=== PATIENT | female | born 1940 | race Caucasian/White ===

== ENCOUNTER 2018-01-26 02:48 | Emergency (ER) | payer MEDICARE, BC ==
[~2018-01-26] VITALS: Ht 170.2 cm; Wt 86.2 kg
[2018-01-26] MEDS ORDERED: ONDANSETRON PF 4 MG/2 ML VIAL. IV ONE (03:30)
[2018-01-26 04:23] LABS: BASO # 0.1 x10^3/uL (0.0-0.2); BASO % 1 % (0-3); EOS # 0.1 x10^3/uL (0.0-0.7); EOS % 2 % (0-3); HEMATOCRIT 35.1 % (36.0-47.0); LYMPH # 2.4 x10^3/uL (1.0-4.8); LYMPH % 39 % (24-48); MEAN CORPUSCULAR HEMOGLOBIN 32 pg (25-35); MEAN CORPUSCULAR HGB CONC 34 g/dL (31-37); MEAN CORPUSCULAR VOLUME 94 fL (79-100); MONO # 0.6 x10^3/uL (0.0-1.1); MONO % 10 % (0-9); NEUT # 2.9 x10^3uL (1.8-7.7); NEUT % 48 % (31-73); PLATELET COUNT 245 x10^3/uL (140-400); RED BLOOD COUNT 3.75 x10^6/uL (3.50-5.40); RED CELL DISTRIBUTION WIDTH 12.4 % (11.5-14.5); WHITE BLOOD COUNT 6.1 x10^3/uL (4.0-11.0)
[2018-01-26 04:27] LABS: ALBUMIN 3.6 g/dL (3.4-5.0); CALCIUM 8.2 mg/dL (8.5-10.1); CREATININE 1.6 mg/dL (0.6-1.0); GFR 31.3; POTASSIUM 4.1 mmol/L (3.5-5.1); TOTAL BILIRUBIN 0.3 mg/dL (0.2-1.0); TOTAL PROTEIN 7.2 g/dL (6.4-8.2)
[2018-01-26] MEDS ORDERED: IOHEXOL 300 MG/ML 75 ML VIAL. IV ONE (04:30)
[2018-01-26] MEDS ORDERED: CONTRAST GIVEN MC PRN (04:30)
[2018-01-26 04:43] LABS: BILIRUBIN,URINE NEG (NEG); CLARITY,URINE CLEAR; COLOR,URINE YELLOW; GLUCOSE,URINE NEG (NEG); NITRITE,URINE NEG (NEG); UROBILINOGEN,URINE 0.2 mg/dL (0.2 mg/dL)
[2018-01-26 04:44] LABS: BACTERIA,URINE 0 /HPF (0-FEW); RBC,URINE OCC /HPF (0-2); SQUAMOUS EPITHELIAL CELL,UR OCC /LPF
[2018-01-26] MEDS ORDERED: IV NORMAL SALINE 500ML 500 ML IV ONE (04:45)
--- NOTE | 2018-01-26 04:50 | EKG ---
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
[2018-01-26 05:16] VITALS: BP 155/61
--- NOTE | 2018-01-26 05:31 | ED.ADGEN ---
Past History Past Medical History: High Cholesterol, Hypertension, Hypothyroid Alcohol Use: None Drug Use: None Adult General Chief Complaint Chief Complaint Mid back pain HPI HPI Patient is a 77-year-old female presents with diffuse mid back pain for the past several days. Patient denies fall, repetitive strain injury. Pain is described as moderate to severe. It is worse with palpation but is constant otherwise. Patient's taken Tylenol with no relief. Denies chest pain, shortness of breath, palpitations, abdominal pain. Pain does not radiate. Denies lower extremity weakness or loss of sensation. No urinary frequency urgency hematuria. No history of kidney stones. Of note, the patient has been staying with her at [facility] and at the care home unit at [facility] the past 3 weeks and has been sitting and sleeping at times and uncomfortable chairs for prolonged periods of time. Patient arrives by by private vehicle[] Review of Systems Review of Systems Review symptoms as prescribed. All other review symptoms are negative All other systems were reviewed and found to be within normal limits, except as documented in this note. Current Medications Current Medications Current Medications Medications (Trade) Dose Ordered Sig/Luis Eduardo Start Time Stop Time Status Last Admin Dose Admin Fentanyl Citrate (Fentanyl 2ml Vial) 50 mcg 1X ONCE 01/26/18 04:45 01/26/18 04:54 DC 01/26/18 04:43 50 MCG Info (Do NOT chart on this entry -- for MONITORING) 1 each PRN DAILY PRN 01/26/18 04:30 01/28/18 04:29 Iohexol (Omnipaque 300 Mg/ml) 90 ml 1X ONCE 01/26/18 04:30 01/26/18 04:31 DC 01/26/18 04:33 75 ML Ondansetron HCl (Zofran) 4 mg 1X ONCE 01/26/18 03:30 01/26/18 03:42 DC 01/26/18 03:49 4 MG Sodium Chloride 500 ml @ 0 mls/hr 1X ONCE 01/26/18 04:45 01/26/18 04:54 DC 01/26/18 04:43 500 MLS/HR Allergies Allergies Allergies Coded Allergies Type Severity Reaction Last Updated Verified No Known Drug Allergies 01/26/18 No Physical Exam Physical Exam Constitutional: Well developed, well nourished, no acute distress, non-toxic appearance. [] HENT: Normocephalic, atraumatic, bilateral external ears normal, oropharynx moist, no oral exudates, nose normal. [] Eyes: PERRLA, EOMI, conjunctiva normal, no discharge. [] Neck: Normal range of motion, no tenderness, supple, no stridor. [] Cardiovascular:Heart rate regular rhythm, no murmur [] Lungs & Thorax: Bilateral breath sounds clear to auscultation [] Abdomen: Bowel sounds normal, soft, no tenderness. Pulsatile, obesity compromising exam[] Skin: Warm, dry, no erythema. [] Back: Diffuse thoracic and lumbar back pain, tenderness. [] Extremities: No tenderness, no edema. [] Neurologic: Alert and oriented X 3, normal motor function, normal sensory function, no focal deficits noted. [] Psychologic: Affect normal, judgement normal, mood normal. [] Current Patient Data Vital Signs Vital Signs Date Time Temp Pulse Resp B/P (MAP) Pulse Ox O2 Delivery O2 Flow Rate FiO2 01/26/18 05:16 63 17 155/61 (92) 95 Room Air 01/26/18 03:05 96.9 Lab Results Laboratory Tests Test 01/26/18 03:33 01/26/18 03:54 White Blood Count 6.1 x10^3/uL (4.0-11.0) Red Blood Count 3.75 x10^6/uL (3.50-5.40) Hemoglobin 12.0 g/dL (12.0-15.5) Hematocrit 35.1 % (36.0-47.0) L Mean Corpuscular Volume 94 fL (79-100) Mean Corpuscular Hemoglobin 32 pg (25-35) Mean Corpuscular Hemoglobin Concent 34 g/dL (31-37) Red Cell Distribution Width 12.4 % (11.5-14.5) Platelet Count 245 x10^3/uL (140-400) Neutrophils (%) (Auto) 48 % (31-73) Lymphocytes (%) (Auto) 39 % (24-48) Monocytes (%) (Auto) 10 % (0-9) H Eosinophils (%) (Auto) 2 % (0-3) Basophils (%) (Auto) 1 % (0-3) Neutrophils # (Auto) 2.9 x10^3uL (1.8-7.7) Lymphocytes # (Auto) 2.4 x10^3/uL (1.0-4.8) Monocytes # (Auto) 0.6 x10^3/uL (0.0-1.1) Eosinophils # (Auto) 0.1 x10^3/uL (0.0-0.7) Basophils # (Auto) 0.1 x10^3/uL (0.0-0.2) Sodium Level 141 mmol/L (136-145) Potassium Level 4.1 mmol/L (3.5-5.1) Chloride Level 105 mmol/L (98-107) Carbon Dioxide Level 28 mmol/L (21-32) Anion Gap 8 (6-14) Blood Urea Nitrogen 27 mg/dL (7-20) H Creatinine 1.6 mg/dL (0.6-1.0) H Estimated GFR (Cockcroft-Gault) 31.3 BUN/Creatinine Ratio 17 (6-20) Glucose Level 117 mg/dL (70-99) H Calcium Level 8.2 mg/dL (8.5-10.1) L Total Bilirubin 0.3 mg/dL (0.2-1.0) Aspartate Amino Transferase (AST) 17 U/L (15-37) Alanine Aminotransferase (ALT) 28 U/L (14-59) Alkaline Phosphatase 73 U/L (46-116) Troponin I Quantitative < 0.017 ng/mL (0-0.055) Total Protein 7.2 g/dL (6.4-8.2) Albumin 3.6 g/dL (3.4-5.0) Albumin/Globulin Ratio 1.0 (1.0-1.7) Urine Collection Type Unknown Urine Color Yellow Urine Clarity Clear Urine pH 5.5 Urine Specific Cowan <=1.005 Urine Protein Neg (NEG-TRACE) Urine Glucose (UA) Neg mg/dL (NEG) Urine Ketones (Stick) Neg mg/dL (NEG) Urine Blood Neg (NEG) Urine Nitrite Neg (NEG) Urine Bilirubin Neg (NEG) Urine Urobilinogen Dipstick 0.2 mg/dL (0.2 mg/dL) Urine Leukocyte Esterase Trace (NEG) Urine RBC Occ /HPF (0-2) Urine WBC 1-4 /HPF (0-4) Urine Squamous Epithelial Cells Occ /LPF Urine Transitional Epithelial Cells Occ /LPF Urine Bacteria 0 /HPF (0-FEW) EKG EKG [EKG: Sinus bradycardia, rate 56, T-wave abnormalities in anterior septal leads. ] Radiology/Procedures Radiology/Procedures [CT angiogram chest/abdomen/pelvis: No evidence of dissection or aneurysm, patchy lucency and sclerosis within vertebral bodies with MRI recommended for further evaluation. Multiple other findings present radiology report] Course & Med Decision Making Course & Med Decision Making Pertinent Labs and Imaging studies reviewed. (See chart for details) [Reproducible back pain though neurologic deficits. Patient denies chest pain, shortness of breath. Symptoms significantly improved with treatment. Patient is resting comfortably. Initial labs and EKG reviewed. Patient does have T-wave inversions noted in anterior septal leads. Troponin is negative. Patient denies chest pain and shortness of breath. I suspect EKG related to current symptoms given negative troponin and prolonged nature of the patient's pain. Will treat supportively with recommendations of the patient follow-up with her PCP for review of EKG and consider of outpatient cardiac testing and MRI of back. Discussed with the importance of returning to the ED should patient develop chest pain shortness breath or other cardiac equivalent. Patient verbalizes understanding agreement with these instructions. Final Impression Final Impression [#1 thoracic back pain #2 abnormal EKG] Gloria Disclaimer Asiaon Disclaimer This electronic medical record was generated, in whole or in part, using a voice recognition dictation system. BRANDI SOLORIO DO Jan 26, 2018 05:31
[2018-01-26] MEDS ORDERED: HYDR-963 PO (05:34)
[2018-01-26] MEDS ORDERED: CYCL-331 PO (05:34)
--- NOTE | 2018-01-26 05:46 | RAD ---
INDICATION: Omni 300 75cc: Concern for dissection, Back pain, short of air x 3 days. Hx: Cholecystectomy COMPARISON: None. TECHNIQUE: Axial CT images obtained through the chest, abdomen and pelvis with intravenous contrast with three-dimensional images processed per angiogram protocol. One or more of the following individualized dose reduction techniques were utilized for this examination: 1. Automated exposure control; 2. Adjustment of the mA and/or kV according to patient size; 3. Use of iterative reconstruction technique. FINDINGS: Chest: No evidence of pneumothorax. No focal airspace consolidation to suggest pneumonia. There are some enlarged lymph nodes including at the mediastinum on the left adjacent to the main pulmonary artery measuring approximately 10 x 16 mm. Portions of a ascending thoracic aorta are obscured secondary to motion through the region. Retroesophageal right subclavian artery. Calcific atherosclerosis of the thoracic aorta without aneurysm or dissection flap in visualized portions. Abdomen and pelvis: Fat-containing inguinal hernias. Abdominal aorta is not aneurysmal. Calcific atherosclerosis is identified. No definite dissection flap of the abdominal aorta. No intrahepatic bile duct dilation. Postcholecystectomy changes. No peripancreatic fluid collection. Duodenal diverticulum. Spleen unremarkable. No left-sided hydronephrosis. Urinary bladder is largely decompressed. No right-sided hydronephrosis. Colonic diverticulosis. Subcutaneous nodular density structure pelvis anteriorly measuring 21 x 15 mm. No dilated loops of bowel to suggest obstruction. Nodular structure of the right breast measuring approximately 11 mm which appears partially calcified. Suspected Schmorl's node formation at L4 and L3. Multilevel degenerative changes of the spine with osteophyte formation at the vertebral body endplates as well as disc protrusions and facet hypertrophy contributing to multilevel central canal and neural foraminal stenosis. Patchy osseous demineralization. There are some sclerotic foci within the thoracic and lumbar spine. IMPRESSION: 1. The ascending thoracic aorta is partially obscured by motion but no definite aneurysm or dissection flap is seen within the visualized portions of the aorta. There is calcific atherosclerosis. 2. Multilevel degenerative changes throughout the spine with suspected Schmorl's node formation at multiple levels. Multilevel central canal and neural foraminal stenosis. 3. There is some regions of patchy lucency and sclerosis within the vertebral bodies. Could be secondary to areas of bone islands and osteopenia but marrow infiltrative lesions are not excluded on this examination and would correlate with symptoms. If the patient is symptomatic it may be helpful to obtain a follow-up MRI to further evaluate and ensure that there is no marrow infiltrative lesions. 4. Soft tissue nodule anterior aspect of the pelvis subcutaneous fat of unknown etiology. Could be secondary to a region of confluent fibrosis with a soft tissue mass also within the differential as well as a small high density fluid collection. 5. Liver is low-attenuation. Nonspecific but can be seen with fatty infiltration. 6. Nodular focus within the right breast which appears partially calcified. If the patient has not had a recent mammogram then mammogram could further evaluate. 7. Enlarged lymph nodes in mediastinum. Could be reactive in nature but a follow-up could be obtained in a few months to ensure no growth to exclude neoplastic causes Electronically signed by: Nabor Candelario MD (01/26/2018 5:42 AM) [id number]
== END 2018-01-26 05:58 | disposition home or self-care (01) ==
LOC: ER 02:48
DX: M54.6 Pain in thoracic spine (principal); M54.5 Low back pain; R94.31 Abnormal electrocardiogram [ECG] [EKG]; E78.00 Pure hypercholesterolemia, unspecified; I10 Essential (primary) hypertension; E03.9 Hypothyroidism, unspecified
CPT/HCPCS: 36415; 71275; 74174; 80053; 81001; 84484; 85025; 87086; 93005; 96374; 96375; 96376; 99285; J2405; J3010; J7040; Q9967

== ENCOUNTER → 2018-03-07 | Outpatient (CLI) | payer MEDICARE, BC ==
[~2018-03-07] MED LIST: CYCL-331 PO; HYDR-3136 PO; IOHEXOL 300 MG/ML 75 ML VIAL. IV ONE
--- NOTE | 2018-03-07 11:40 | RAD ---
Examination: CT chest with IV contrast HISTORY: History of family history of lung cancer, colon cancer, secondhand smoking, history of dry cough COMPARISON: 01/26/2018 TECHNIQUE: Axial CT images of chest were performed with IV contrast. Coronal and sagittal reformats are performed Exposure: One or more of the following individualized dose reduction techniques were utilized for this examination: 1. Automated exposure control 2. Adjustment of the mA and/or kV according to patient size 3. Use of iterative reconstruction technique FINDINGS: The visualized thyroid gland grossly appears unremarkable. The central airways are patent. Right subclavian artery identified coursing posterior to the esophagus. Minimal atelectasis bibasilar lungs. The heart size grossly appears unremarkable. The visualized liver, spleen, adrenals grossly appears unremarkable. Moderate degenerative changes thoracic spine. IMPRESSION: 1. Minimal bibasilar lung atelectasis. 2. Aberrant right subclavian artery coursing posterior to the esophagus, developmental. Electronically signed by: John Shabazz MD (03/07/2018 11:36 AM) [id number]
== END | disposition home or self-care (01) ==
LOC: CT 07:59
PROVIDERS: ATTEND Family Medicine
DX: J98.11 Atelectasis (principal); Q27.8 Other specified congenital malformations of peripheral vascular system; Z80.1 Family history of malignant neoplasm of trachea, bronchus and lung
CPT/HCPCS: 71260; Q9967

== ENCOUNTER → 2018-04-15 | Outpatient (CLI) | payer MEDICARE, BC ==
[~2018-04-15] MED LIST changes: -IOHEXOL 300 MG/ML 75 ML VIAL. IV ONE
--- NOTE | 2018-04-16 09:57 | RAD ---
DATE: 04/15/2018 EXAM: MAMMO AUTUMN SCREENING BILATERAL HISTORY: Routine screening COMPARISON: 02/24/2014 This study was interpreted with the benefit of Computerized Aided Detection (CAD). Breast Density: SCATTERED The breast parenchyma shows scattered fibroglandular densities. Breast parenchyma level B. FINDINGS: 2-D and 3-D tomosynthesis imaging was performed in CC and MLO projections. There is a small unchanged nodule located just lateral to the midline of the right breast which contains coarse calcifications. The appearance is compatible with a fibroadenoma. There are several tiny smooth benign-appearing nodules in both breasts. No new or enlarging breast densities are seen. Scattered benign type calcifications are present. No suspicious microcalcifications have developed. IMPRESSION: Stable mammograms without evidence of malignancy. BI-RADS CATEGORY: 2 BENIGN FINDING(S) RECOMMENDED FOLLOW-UP: 12M 12 MONTH FOLLOW-UP PQRS compliance statement: Patient information was entered into a reminder system with a target due date for the next mammogram. Mammography is a sensitive method for finding small breast cancers, but it does not detect them all and is not a substitute for careful clinical examination. A negative mammogram does not negate a clinically suspicious finding and should not result in delay in biopsying a clinically suspicious abnormality. "Our facility is accredited by the [employer] Mammography Program."
== END | disposition home or self-care (01) ==
LOC: MAMMO 10:54
PROVIDERS: ATTEND Family Medicine
DX: Z12.31 Encounter for screening mammogram for malignant neoplasm of breast (principal)
CPT/HCPCS: 77063; 77067

== ENCOUNTER 2018-09-27 19:04 | Emergency (ER) | payer BC, MEDICARE ==
[~2018-09-27] VITALS: Ht 170.2 cm; Wt 87.0 kg
--- NOTE | 2018-09-27 19:12 | ED.ADGEN ---
Past History Past Medical History: Arthritis, Diverticulitis, High Cholesterol, Hypertension, Hypothyroid Alcohol Use: None Drug Use: None Adult General Chief Complaint Chief Complaint ".. I am having some back pain...".." Here on my Rt. flank... " [facility] HPI Patient is a 78 year old female who presents with above hx and complaints Rt. flank and mid back pain. History of trauma. No history of kidney stones. No history of fever or chills. No history of cough. No history of travel. No history of specific ill contacts. Has had a previous episode that resolved over 24 hours. Pt. follow s with Dr. Oshea Review of Systems Review of Systems Constitutional: Denies fever or chills [] Eyes: Denies change in visual acuity, redness, or eye pain [] HENT: Denies nasal congestion or sore throat [] Respiratory: Denies cough or shortness of breath [] Cardiovascular: No additional information not addressed in HPI [] GI: Complaints of right flank abdominal pain, nausea. Denies, vomiting, bloody stools or diarrhea [] : Denies dysuria or hematuria [] Musculoskeletal:, Complaints of right flank back pain or joint pain [] Integument: Denies rash or skin lesions [] Neurologic: Denies headache, focal weakness or sensory changes [] Endocrine: Denies polyuria or polydipsia [] All other systems were reviewed and found to be within normal limits, except as documented in this note. Family History Family History Noncontributory to presentation Current Medications Current Medications Current Medications Medications (Trade) Dose Ordered Sig/[facility] Start Time Stop Time Status Last Admin Dose Admin Ketorolac Tromethamine (Toradol 15mg Vial) 15 mg 1X ONCE 09/27/18 19:30 09/27/18 19:31 DC 09/27/18 20:16 15 MG Morphine Sulfate (Morphine 10mg Syringe) 10 mg 1X ONCE 09/27/18 21:30 09/27/18 21:31 DC 09/27/18 21:23 10 MG Allergies Allergies Allergies Coded Allergies Type Severity Reaction Last Updated Verified No Known Drug Allergies 01/26/18 No Physical Exam Physical Exam Constitutional: Moderately acute distress, non-toxic appearance. [] HENT: Normocephalic, atraumatic, bilateral external ears normal, oropharynx moist, no oral exudates, nose normal. [] Eyes: PERRLA, EOMI, conjunctiva normal, no discharge. [] Neck: Normal range of motion, no tenderness, supple, no stridor. [] Cardiovascular:Heart rate regular rhythm, no murmur [] Lungs & Thorax: Bilateral breath sounds equal apex on auscultation [] Abdomen: Bowel sounds decreased, soft, right flank tenderness, no masses, no pulsatile masses. [] Skin: Warm, dry, no erythema, no rash. [] Back: Right flank CVA tenderness. [] Extremities: No tenderness, no cyanosis, no clubbing, ROM intact, no edema. 3 changes. No cording appreciated. Neurologic: Alert and oriented X 3, normal motor function, normal sensory function, no focal deficits noted. [] Psychologic: Affect anxious, judgement normal, mood normal. [] Current Patient Data Vital Signs Vital Signs Date Time Temp Pulse Resp B/P (MAP) Pulse Ox O2 Delivery O2 Flow Rate FiO2 09/27/18 21:28 54 22 172/59 (96) 100 Room Air 09/27/18 19:10 97.5 Lab Results Laboratory Tests Test 09/27/18 19:10 09/27/18 19:35 Urine Collection Type Unknown Urine Color Yellow Urine Clarity Clear Urine pH 5.5 Urine Specific Counce 1.015 Urine Protein Neg (NEG-TRACE) Urine Glucose (UA) Neg mg/dL (NEG) Urine Ketones (Stick) Neg mg/dL (NEG) Urine Blood Neg (NEG) Urine Nitrite Neg (NEG) Urine Bilirubin Neg (NEG) Urine Urobilinogen Dipstick 1 mg/dL (0.2 mg/dL) Urine Leukocyte Esterase Neg (NEG) Urine RBC 0 /HPF (0-2) Urine WBC 1-4 /HPF (0-4) Urine Squamous Epithelial Cells Occ /LPF Urine Bacteria 0 /HPF (0-FEW) White Blood Count 7.2 x10^3/uL (4.0-11.0) Red Blood Count 3.78 x10^6/uL (3.50-5.40) Hemoglobin 11.9 g/dL (12.0-15.5) L Hematocrit 36.0 % (36.0-47.0) Mean Corpuscular Volume 95 fL (79-100) Mean Corpuscular Hemoglobin 32 pg (25-35) Mean Corpuscular Hemoglobin Concent 33 g/dL (31-37) Red Cell Distribution Width 12.8 % (11.5-14.5) Platelet Count 238 x10^3/uL (140-400) Neutrophils (%) (Auto) 54 % (31-73) Lymphocytes (%) (Auto) 35 % (24-48) Monocytes (%) (Auto) 8 % (0-9) Eosinophils (%) (Auto) 2 % (0-3) Basophils (%) (Auto) 1 % (0-3) Neutrophils # (Auto) 3.9 x10^3uL (1.8-7.7) Lymphocytes # (Auto) 2.5 x10^3/uL (1.0-4.8) Monocytes # (Auto) 0.6 x10^3/uL (0.0-1.1) Eosinophils # (Auto) 0.1 x10^3/uL (0.0-0.7) Basophils # (Auto) 0.1 x10^3/uL (0.0-0.2) Prothrombin Time 9.8 SEC (9.4-11.4) Prothrombin Time INR 1.0 (0.9-1.1) PTT 25 SEC (23-33) Sodium Level 142 mmol/L (136-145) Potassium Level 4.0 mmol/L (3.5-5.1) Chloride Level 105 mmol/L (98-107) Carbon Dioxide Level 25 mmol/L (21-32) Anion Gap 12 (6-14) Blood Urea Nitrogen 23 mg/dL (7-20) H Creatinine 1.4 mg/dL (0.6-1.0) H Estimated GFR (Cockcroft-Gault) 36.4 Glucose Level 91 mg/dL (70-99) Calcium Level 8.8 mg/dL (8.5-10.1) Magnesium Level 1.9 mg/dL (1.8-2.4) Total Bilirubin 0.3 mg/dL (0.2-1.0) Direct Bilirubin 0.1 mg/dL (0.0-0.2) Aspartate Amino Transferase (AST) 17 U/L (15-37) Alanine Aminotransferase (ALT) 33 U/L (14-59) Alkaline Phosphatase 64 U/L (46-116) Creatine Kinase 46 U/L (26-192) Troponin I Quantitative < 0.017 ng/mL (0-0.055) Total Protein 7.3 g/dL (6.4-8.2) Albumin 3.6 g/dL (3.4-5.0) EKG EKG [] Radiology/Procedures Radiology/Procedures [ My interpretation of acute abd. film show no large pulmonary infiltrate. No free air under a gram. Does have stool in the colon. Obstructive bowel gas pattern. Does have findings of degenerative joint changes both of extremities and spine. ][address] [address] IMAGING REPORT Signed PATIENT: SHAQUILLE CAROLINA ACCOUNT: [id number] : 1940 LOCATION: ER AGE: 78 SEX: F EXAM STATUS: REG ER ORD. PHYSICIAN: ANTONIO LEVINE MD REASON: Mid back, lower back and Rt. flank pain. Hx cholecystectomy PROCEDURE: CT ABDOMEN PELVIS WO CONTRAST CT study abdomen and pelvis without contrast Clinical indications: Mid back pain lower back pain and right flank pain. History cholecystectomy. TECHNIQUE: Noncontrast helical CT scanning of abdomen and pelvis was performed. Without contrast, the sensitivity to detect organ pathology and GI tract pathology is decreased. PQRS compliance Statement One or more of the following individualized dose reduction techniques were utilized for this study: 1. Automated exposure control 2. Adjustment of the mA and/or kV according to patient size 3. Use of iterative reconstruction technique COMPARISON: None available. FINDINGS: The liver and spleen and pancreas are unremarkable on this noncontrast study. The gallbladder is surgically absent. No extrahepatic biliary ductal dilatation is seen. No adrenal mass is evident. No renal stone or ureteral stone or hydronephrosis or hydroureter is evident. No renal mass is seen on either side on this noncontrast study. Urinary bladder wall is smooth. No uterine mass is evident. No dominant ovarian cyst or mass is seen. No focal aneurysmal dilatation of the abdominal aorta is seen. No enlarged abdominal or pelvic lymphadenopathy is evident. Sigmoid diverticulosis is seen without diverticulitis. The appendix is normal. The terminal ileum is unremarkable. No obstructive bowel pattern is evident. No free intraperitoneal air or free fluid or mesenteric edema is evident. No lung base consolidation is evident. There is edema of the anterior abdominal wall on the right side. A few bubbles of air are seen here as well. No abscess or fluid collection is seen here. No lytic process is seen. Grade 1 anterolisthesis of L4-5 without spondylolysis. No compression fracture is evident. There is a moderate spinal canal stenosis at this level. IMPRESSION: There is a focus of soft tissue edema involving the anterior abdominal wall on the right side. This area measures 4.3 cm in greatest dimension. There are a few bubbles of air within it. This could be due to subcutaneous injection if there is a history of such. If not, this may be due to focal infection. No abscess is seen here. Sigmoid diverticulosis without diverticulitis. No other acute abnormality of the abdomen or pelvis is evident. Moderate spinal canal stenosis at L4-5 secondary to grade 1 anterolisthesis. Electronically signed by: Yolie Mckenzie MD (09/27/2018 10:20 PM) [facility] DICTATED AND SIGNED BY: YOLIE MCKENZIE MD DATE: 09/27/182219 CC: ASH OSHEA MD; ANTONIO LEVINE MD ~ Course & Med Decision Making Course & Med Decision Making Pertinent Labs and Imaging studies reviewed. (See chart for details) Pt. currently declines admission. Recommend pt. follow up Dr. Oshea. Return at any time. Pt. to push fluids. Tylenol and Ibuprofen for pain. MOM to avoid constipation. [] Final Impression Final Impression 1. Abdomen Pain Rt. Flank- Renal colic?? 2. DJD Lumbar spine L4-5 Stenosis 3. Elevated BUN 23 and Creat. 1.4 4. Mild Dehydration Dragon Disclaimer Draglucio Disclaimer This electronic medical record was generated, in whole or in part, using a voice recognition dictation system. Discharge Summary Visit Information Final Diagnosis Problems Medical Problems: (1) Pain in the abdomen Status: Acute (2) Spinal stenosis at L4-L5 level Status: Acute Brief Hospital Course Allergies Allergies Coded Allergies Type Severity Reaction Last Updated Verified No Known Drug Allergies 01/26/18 No Vital Signs Vital Signs Date Time Temp Pulse Resp B/P (MAP) Pulse Ox O2 Delivery O2 Flow Rate FiO2 09/27/18 21:28 54 22 172/59 (96) 100 Room Air 09/27/18 19:10 97.5 Lab Results Laboratory Tests Test 6/22/19 19:10 09/27/18 19:35 Urine Collection Type Unknown Urine Color Yellow Urine Clarity Clear Urine pH 5.5 Urine Specific Counce 1.015 Urine Protein Neg (NEG-TRACE) Urine Glucose (UA) Neg mg/dL (NEG) Urine Ketones (Stick) Neg mg/dL (NEG) Urine Blood Neg (NEG) Urine Nitrite Neg (NEG) Urine Bilirubin Neg (NEG) Urine Urobilinogen Dipstick 1 mg/dL (0.2 mg/dL) Urine Leukocyte Esterase Neg (NEG) Urine RBC 0 /HPF (0-2) Urine WBC 1-4 /HPF (0-4) Urine Squamous Epithelial Cells Occ /LPF Urine Bacteria 0 /HPF (0-FEW) White Blood Count 7.2 x10^3/uL (4.0-11.0) Red Blood Count 3.78 x10^6/uL (3.50-5.40) Hemoglobin 11.9 g/dL (12.0-15.5) Hematocrit 36.0 % (36.0-47.0) Mean Corpuscular Volume 95 fL (79-100) Mean Corpuscular Hemoglobin 32 pg (25-35) Mean Corpuscular Hemoglobin Concent 33 g/dL (31-37) Red Cell Distribution Width 12.8 % (11.5-14.5) Platelet Count 238 x10^3/uL (140-400) Neutrophils (%) (Auto) 54 % (31-73) Lymphocytes (%) (Auto) 35 % (24-48) Monocytes (%) (Auto) 8 % (0-9) Eosinophils (%) (Auto) 2 % (0-3) Basophils (%) (Auto) 1 % (0-3) Neutrophils # (Auto) 3.9 x10^3uL (1.8-7.7) Lymphocytes # (Auto) 2.5 x10^3/uL (1.0-4.8) Monocytes # (Auto) 0.6 x10^3/uL (0.0-1.1) Eosinophils # (Auto) 0.1 x10^3/uL (0.0-0.7) Basophils # (Auto) 0.1 x10^3/uL (0.0-0.2) Prothrombin Time 9.8 SEC (9.4-11.4) Prothromb Time International Ratio 1.0 (0.9-1.1) Activated Partial Thromboplast Time 25 SEC (23-33) Sodium Level 142 mmol/L (136-145) Potassium Level 4.0 mmol/L (3.5-5.1) Chloride Level 105 mmol/L (98-107) Carbon Dioxide Level 25 mmol/L (21-32) Anion Gap 12 (6-14) Blood Urea Nitrogen 23 mg/dL (7-20) Creatinine 1.4 mg/dL (0.6-1.0) Estimated GFR (Cockcroft-Gault) 36.4 Glucose Level 91 mg/dL (70-99) Calcium Level 8.8 mg/dL (8.5-10.1) Magnesium Level 1.9 mg/dL (1.8-2.4) Total Bilirubin 0.3 mg/dL (0.2-1.0) Direct Bilirubin 0.1 mg/dL (0.0-0.2) Aspartate Amino Transf (AST/SGOT) 17 U/L (15-37) Alanine Aminotransferase (ALT/SGPT) 33 U/L (14-59) Alkaline Phosphatase 64 U/L (46-116) Creatine Kinase 46 U/L (26-192) Troponin I Quantitative < 0.017 ng/mL (0-0.055) Total Protein 7.3 g/dL (6.4-8.2) Albumin 3.6 g/dL (3.4-5.0) Brief Hospital Course Ms. Carolina is a 78 old female who presented with Rt. flank abd. pain. No surgical pathology found on CT. Pt. symptoms had cleared, and declined admission. Suspect diverticulitis vs renal colic. Pt. to follow with primary Dr. Oshea. Discharge Information Condition at Discharge: Improved, Stable Disposition/Orders: D/C to Home Dischare Medications Current Medications Ketorolac Tromethamine (Toradol 15mg Vial) 15 mg 1X ONCE IV Last administered on 09/27/18at 20:16; Admin Dose 15 MG; Start 09/27/18 at 19:30; Stop 09/27/18 at 19:31; Status DC Morphine Sulfate (Morphine 10mg Syringe) 10 mg 1X ONCE SQ Last administered on 09/27/18at 21:23; Admin Dose 10 MG; Start 09/27/18 at 21:30; Stop 09/27/18 at 21:31; Status DC Active Scripts Active Zofran (Ondansetron Hcl) 8 Mg Tablet 8 Mg PO QIDPRN PRN Hydrocodone-Ibuprofen 7.5-200 (Hydrocodone/Ibuprofen) 1 Each Tablet 1 Tab PO PRN Q6HRS PRN Dragon Disclaimer This chart was dictated in whole or in part using Voice Recognition software in a busy, high-work load, and often noisy Emergency Department environment. It may contain unintended and wholly unrecognized errors or omissions. ANTONIO LEVINE MD Sep 27, 2018 19:12
[2018-09-27] MEDS ORDERED: KETOROLAC 15 MG/ML VIAL. IV ONE (19:30)
[2018-09-27 20:12] LABS: BASO # 0.1 x10^3/uL (0.0-0.2); BASO % 1 % (0-3); EOS # 0.1 x10^3/uL (0.0-0.7); EOS % 2 % (0-3); HEMOGLOBIN 11.9 g/dL (12.0-15.5); LYMPH # 2.5 x10^3/uL (1.0-4.8); LYMPH % 35 % (24-48); MEAN CORPUSCULAR HEMOGLOBIN 32 pg (25-35); MEAN CORPUSCULAR HGB CONC 33 g/dL (31-37); MEAN CORPUSCULAR VOLUME 95 fL (79-100); MONO # 0.6 x10^3/uL (0.0-1.1); MONO % 8 % (0-9); NEUT # 3.9 x10^3uL (1.8-7.7); NEUT % 54 % (31-73); PLATELET COUNT 238 x10^3/uL (140-400); RED BLOOD COUNT 3.78 x10^6/uL (3.50-5.40); RED CELL DISTRIBUTION WIDTH 12.8 % (11.5-14.5); WHITE BLOOD COUNT 7.2 x10^3/uL (4.0-11.0)
[2018-09-27 20:22] LABS: ALBUMIN 3.6 g/dL (3.4-5.0); CALCIUM 8.8 mg/dL (8.5-10.1); CREATININE 1.4 mg/dL (0.6-1.0); DIRECT BILIRUBIN 0.1 mg/dL (0.0-0.2); GFR 36.4; MAGNESIUM 1.9 mg/dL (1.8-2.4); TOTAL BILIRUBIN 0.3 mg/dL (0.2-1.0); TOTAL PROTEIN 7.3 g/dL (6.4-8.2)
[2018-09-27 20:24] LABS: BACTERIA,URINE 0 /HPF (0-FEW); BILIRUBIN,URINE NEG (NEG); CLARITY,URINE CLEAR; COLOR,URINE YELLOW; GLUCOSE,URINE NEG (NEG); NITRITE,URINE NEG (NEG); RBC,URINE 0 /HPF (0-2); SQUAMOUS EPITHELIAL CELL,UR OCC /LPF; UROBILINOGEN,URINE 1 mg/dL (0.2 mg/dL)
[2018-09-27] MEDS ORDERED: MORPHINE SULFATE 10 MG/ML SYRINGE. SQ ONE (21:30)
--- NOTE | 2018-09-27 22:22 | RAD ---
CT study abdomen and pelvis without contrast Clinical indications: Mid back pain lower back pain and right flank pain. History cholecystectomy. TECHNIQUE: Noncontrast helical CT scanning of abdomen and pelvis was performed. Without contrast, the sensitivity to detect organ pathology and GI tract pathology is decreased. PQRS compliance Statement One or more of the following individualized dose reduction techniques were utilized for this study: 1. Automated exposure control 2. Adjustment of the mA and/or kV according to patient size 3. Use of iterative reconstruction technique COMPARISON: None available. FINDINGS: The liver and spleen and pancreas are unremarkable on this noncontrast study. The gallbladder is surgically absent. No extrahepatic biliary ductal dilatation is seen. No adrenal mass is evident. No renal stone or ureteral stone or hydronephrosis or hydroureter is evident. No renal mass is seen on either side on this noncontrast study. Urinary bladder wall is smooth. No uterine mass is evident. No dominant ovarian cyst or mass is seen. No focal aneurysmal dilatation of the abdominal aorta is seen. No enlarged abdominal or pelvic lymphadenopathy is evident. Sigmoid diverticulosis is seen without diverticulitis. The appendix is normal. The terminal ileum is unremarkable. No obstructive bowel pattern is evident. No free intraperitoneal air or free fluid or mesenteric edema is evident. No lung base consolidation is evident. There is edema of the anterior abdominal wall on the right side. A few bubbles of air are seen here as well. No abscess or fluid collection is seen here. No lytic process is seen. Grade 1 anterolisthesis of L4-5 without spondylolysis. No compression fracture is evident. There is a moderate spinal canal stenosis at this level. IMPRESSION: There is a focus of soft tissue edema involving the anterior abdominal wall on the right side. This area measures 4.3 cm in greatest dimension. There are a few bubbles of air within it. This could be due to subcutaneous injection if there is a history of such. If not, this may be due to focal infection. No abscess is seen here. Sigmoid diverticulosis without diverticulitis. No other acute abnormality of the abdomen or pelvis is evident. Moderate spinal canal stenosis at L4-5 secondary to grade 1 anterolisthesis. Electronically signed by: Rich Mckenzie MD (09/27/2018 10:20 PM) [facility]
[2018-09-27] MEDS ORDERED: ONDA8TAB9 PO (23:06)
[2018-09-27] MEDS ORDERED: HYDR-1179 PO (23:06)
[2018-09-28] VITALS: BP 163/70
--- NOTE | 2018-09-28 05:55 | RAD ---
Acute abdominal series with single view chest 09/27/2018 7:23 PM INDICATION: Mid back and right flank pain COMPARISON: CT chest, abdomen and pelvis January 26, 2018 TECHNIQUE: Single view chest, upright view of the abdomen and supine views of the abdomen and pelvis are provided. FINDINGS: The cardiomediastinal silhouette is within normal limits. There are no pleural effusions. There is no pulmonary vascular congestion. There is no pneumothorax. The lungs are clear. No significant osseous abnormality is identified. Mild osteoarthrosis of the hips. Phleboliths are identified. There are no differential air-fluid levels. No free intraperitoneal air. Cholecystectomy clips are present. No dilated loops of small or large bowel. IMPRESSION: No acute cardiopulmonary process. Nonobstructive bowel gas pattern. Electronically signed by: Maria Esther Altamirano MD (09/28/2018 5:52 AM) [facility]
== END 2018-09-28 00:10 | disposition home or self-care (01) ==
LOC: ER 19:04
DX: M48.061 Spinal stenosis, lumbar region without neurogenic claudication (principal); E86.0 Dehydration; R10.9 Unspecified abdominal pain; R79.89 Other specified abnormal findings of blood chemistry; R97.0 Elevated carcinoembryonic antigen [CEA]; K57.30 Diverticulosis of large intestine without perforation or abscess without bleeding; M19.90 Unspecified osteoarthritis, unspecified site; E78.00 Pure hypercholesterolemia, unspecified; I10 Essential (primary) hypertension; E03.9 Hypothyroidism, unspecified
CPT/HCPCS: 36415; 74022; 74176; 80048; 80076; 81001; 82550; 83735; 84484; 85025; 85610; 85730; 96372; 96374; 99285; J1885; J2270

== ENCOUNTER → 2019-04-16 | Outpatient (CLI) | payer MEDICARE, BC ==
[~2019-04-16] MED LIST changes: +HYDR-1179 PO; +ONDA8TAB9 PO
--- NOTE | 2019-04-17 11:25 | RAD ---
DATE: 04/16/2019 EXAM: MAMMO AUTUMN SCREENING BILATERAL HISTORY: Routine screening COMPARISON: 04/15/2018, 02/24/2014, 08/25/2012 mammographic exams This study was interpreted with the benefit of Computerized Aided Detection (CAD). Breast Density: SCATTERED The breast parenchyma shows scattered fibroglandular densities. Breast parenchyma level B. FINDINGS: No suspicious calcification, mass, or distortion. Calcified nodule which probably represents a fibroadenoma or other benign process involving the right upper-outer breast is present. Multiple very small masses are also present but stable. IMPRESSION: Stable BI-RADS CATEGORY: 2 BENIGN FINDING(S) RECOMMENDED FOLLOW-UP: 12M 12 MONTH FOLLOW-UP PQRS compliance statement: Patient information was entered into a reminder system with a target due date for the next mammogram. Mammography is a sensitive method for finding small breast cancers, but it does not detect them all and is not a substitute for careful clinical examination. A negative mammogram does not negate a clinically suspicious finding and should not result in delay in biopsying a clinically suspicious abnormality. "Our facility is accredited by the [employer] Mammography Program."
== END | disposition home or self-care (01) ==
LOC: MAMMO 09:44
PROVIDERS: ATTEND Family Medicine
DX: Z12.31 Encounter for screening mammogram for malignant neoplasm of breast (principal); N63.11 Unspecified lump in the right breast, upper outer quadrant
CPT/HCPCS: 77063; 77067

== ENCOUNTER 2019-05-20 18:46 | Emergency (ER) | payer MEDICARE, BC ==
[~2019-05-20] VITALS: Ht 170.2 cm; Wt 87.0 kg
[2019-05-20] MEDS ORDERED: ONDANSETRON ODT 4 MG TAB.RAPDIS PO ONE (19:45)
[2019-05-20] MEDS ORDERED: MORPHINE SULFATE 10 MG/ML SYRINGE. IM ONE (19:45)
[2019-05-20] MEDS ORDERED: CYCL-331 PO (21:29)
--- NOTE | 2019-05-20 21:29 | PHYS DOC ---
Past History Past Medical History: Arthritis, Diverticulitis, High Cholesterol, Hypertension, Hypothyroid Past Surgical History: Cholecystectomy, Other Additional Past Surgical Histo: cardiac cath jul/2018 Alcohol Use: None Drug Use: None Adult General Chief Complaint Chief Complaint: BACK PAIN OR INJURY HPI HPI Patient is a 79 year old female who presents with complaint of left-sided mid back pain. Patient states that her symptoms have been present over the past 3 days. Notes that the pain is along the left side of her back just under her shoulder blade. Notes that the pain worsens with movement. Describes the pain as sharp and feels like muscle spasms. The patient states that she went to her chiropractor yesterday for an adjustment. Started to notice worsening spasms shortly after her adjustment yesterday. States that she went back again to have this area treated and notes that initially the chiropractic treatment helped while in office, but started to have muscle spasms shortly after leaving. Denies any associated substernal chest pain. Denies any tearing quality of pain. No dizziness, shortness of breath, nausea, diaphoresis, or abdominal pain. Has taken ibuprofen at home with no significant relief in symptoms. Notes that she has recently had a full cardiac evaluation within the past year i ncluding a cardiac catheterization done at [facility] which she states showed no evidence of coronary vessel blockage at that time. Notes the pain seems to worsen with movement. Review of Systems Review of Systems Constitutional: Denies fever or chills [] Eyes: Denies change in visual acuity, redness, or eye pain [] HENT: Denies nasal congestion or sore throat [] Respiratory: Denies cough or shortness of breath [] Cardiovascular: Denies chest pain or edema[] GI: Denies abdominal pain, nausea, vomiting, bloody stools or diarrhea [] : Denies dysuria or hematuria [] Musculoskeletal: Back pain[] Integument: Denies rash or skin lesions [] Neurologic: Denies headache, focal weakness or sensory changes [] All other systems were reviewed and found to be within normal limits, except as documented in this note. Current Medications Current Medications Current Medications Medications (Trade) Dose Ordered Sig/Luis Eduardo Start Time Stop Time Status Last Admin Dose Admin Cyclobenzaprine HCl (Flexeril) 10 mg 1X ONCE 05/20/19 21:30 05/20/19 21:31 05/20/19 21:18 10 MG Morphine Sulfate (Morphine 10mg Syringe) 5 mg 1X ONCE 05/20/19 19:45 05/20/19 19:46 DC 05/20/19 19:54 5 MG Ondansetron HCl (Zofran Odt) 4 mg 1X ONCE 05/20/19 19:45 05/20/19 19:46 DC 05/20/19 19:54 4 MG Allergies Allergies Allergies Coded Allergies Type Severity Reaction Last Updated Verified No Known Drug Allergies 01/26/18 No Physical Exam Physical Exam Constitutional: Alert, afebrile, appears in moderate discomfort. [] HENT: Normocephalic, atraumatic, bilateral external ears normal, oropharynx moist, no oral exudates, nose normal. [] Eyes: PERRLA, EOMI, conjunctiva normal, no discharge. [] Neck: Normal range of motion, no tenderness, supple, no stridor. [] Cardiovascular:Heart rate regular rhythm, no murmur [] Lungs & Thorax: Bilateral breath sounds clear to auscultation [] Abdomen: Bowel sounds normal, soft, no tenderness, no masses, no pulsatile masses. [] Skin: Warm, dry, no erythema, no rash. [] Back: No midline tenderness to palpation, left mid to lower thoracic paraspinous muscle tenderness with palpable spasm, palpation causes reproducible symptoms, no flank ecchymosis. [] Extremities: No tenderness, no cyanosis, no clubbing, ROM intact, no edema. [] Neurologic: Alert and oriented X 3, normal motor function, normal sensory function, no focal deficits noted. [] Current Patient Data Vital Signs Vital Signs Date Time Temp Pulse Resp B/P (MAP) Pulse Ox O2 Delivery O2 Flow Rate FiO2 05/20/19 19:54 20 97 Room Air 05/20/19 18:50 98.0 53 141/75 (97) Lab Results Not performed EKG EKG Interpreted by me: Heart rate 50, sinus rhythm, normal intervals, normal axis, T-wave inversions in 1, aVL, and V2 present and unchanged on previous EKG from January 26, 2018, no acute ST/T-wave abnormalities present[] Radiology/Procedures Radiology/Procedures Not performed[] Course & Med Decision Making Course & Med Decision Making Pertinent Labs and Imaging studies reviewed. (See chart for details) EKG shows stable T-wave changes from previous EKG and no other evidence of acute ischemia. The patient's examination appears consistent with thoracic muscle pain. Treated with IM morphine in the emergency department followed by oral Flexeril. Patient notes improvement in pain symptoms at this time. Prescribe small course of Flexeril for continued treatment of pain symptoms at home and recommended follow-up in the next 2 days with primary doctor for reevaluation. Patient voiced understanding and in agreement with treatment plan. Dragon Disclaimer Dragon Disclaimer This electronic medical record was generated, in whole or in part, using a voice recognition dictation system. Departure Departure: Impression: Primary Impression: Acute thoracic back pain Disposition: HOME, SELF-CARE Condition: IMPROVED Referrals: ASH OSHEA MD (PCP) Patient Instructions: Back Pain, Adult Additional Instructions: Follow-up with your primary doctor in the next 2 days for reevaluation. Return to the emergency department for any worsening symptoms. Scripts Cyclobenzaprine Hcl (CYCLOBENZAPRINE HCL) 10 Mg Tablet 1 TAB PO TID PRN for MUSCLE SPASMS, #20 TAB Prov: ESPINOZA VALENCIA MD 05/20/19 Problem Qualifiers Primary Impression: Acute thoracic back pain Back pain laterality: left Qualified Codes: M54.6 - Pain in thoracic spine ESPINOZA VALENCIA MD May 20, 2019 21:29
[2019-05-20] MEDS ORDERED: CYCLOBENZAPRINE 10 MG TABLET. PO ONE (21:30)
[2019-05-20 21:35] VITALS: BP 158/57
--- NOTE | 2019-05-20 23:19 | EKG ---
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
== END 2019-05-20 21:34 | disposition home or self-care (01) ==
LOC: ER 18:46
DX: M54.6 Pain in thoracic spine (principal); I10 Essential (primary) hypertension; E03.9 Hypothyroidism, unspecified; E78.5 Hyperlipidemia, unspecified; Z90.49 Acquired absence of other specified parts of digestive tract
CPT/HCPCS: 93005; 96372; 99283; J2270; Q0162

== ENCOUNTER → 2019-07-07 | Outpatient (CLI) | payer MEDICARE, BC ==
[2019-07-07 10:55] LABS: ALBUMIN 3.4 g/dL (3.4-5.0); CREATININE 1.5 mg/dL (0.6-1.0); GFR 33.5; PHOSPHORUS 4.1 mg/dL (2.6-4.7); POTASSIUM 4.1 mmol/L (3.5-5.1)
[2019-07-07 10:56] LABS: HEMATOCRIT 34.1 % (36.0-47.0); HEMOGLOBIN 11.7 g/dL (12.0-15.5)
[2019-07-07 19:07] LABS: CALCIUM PTH 9.1 mg/dL (8.7-10.3); CREATININE PTH 1.41 mg/dL (0.57-1.00); PTH INTACT 45 pg/mL (15-65)
[2019-07-08 00:06] LABS: MICROALB RD UR 15.9 ug/mL (Not Estab.)
[2019-07-08 14:00] LABS: CREATININE,RANDOM URINE 77.2 mg/dL (Not Establ.)
== END | disposition home or self-care (01) ==
LOC: LAB 10:17
PROVIDERS: ATTEND Nurse Practitioner Adult Health
DX: I12.9 Hypertensive chronic kidney disease with stage 1 through stage 4 chronic kidney disease, or unspecified chronic kidney disease (principal); N18.3 Chronic kidney disease, stage 3 (moderate); D64.9 Anemia, unspecified; R80.1 Persistent proteinuria, unspecified
CPT/HCPCS: 36415; 80069; 82043; 82306; 82570; 83970; 84156; 85014; 85018

== ENCOUNTER → 2020-01-08 | Outpatient (CLI) | payer MEDICARE, BC ==
[2020-01-08 11:09] LABS: ALBUMIN 3.4 g/dL (3.4-5.0); CALCIUM 8.9 mg/dL (8.5-10.1); CREATININE 1.8 mg/dL (0.6-1.0); GFR 27.1; PHOSPHORUS 4.4 mg/dL (2.6-4.7); POTASSIUM 3.8 mmol/L (3.5-5.1)
== END | disposition home or self-care (01) ==
LOC: LAB 09:53
PROVIDERS: ATTEND Internal Medicine Nephrology
DX: I12.9 Hypertensive chronic kidney disease with stage 1 through stage 4 chronic kidney disease, or unspecified chronic kidney disease (principal); N18.30 Chronic kidney disease, stage 3 unspecified; R80.1 Persistent proteinuria, unspecified; D64.9 Anemia, unspecified; E55.9 Vitamin D deficiency, unspecified
CPT/HCPCS: 36415; 80069

== ENCOUNTER 2020-04-12 02:25 | Emergency (ER) | payer MEDICARE, BC ==
[~2020-04-12] VITALS: Ht 170.2 cm; Wt 83.7 kg
[2020-04-12 02:25] VITALS: BP 154/56
--- NOTE | 2020-04-12 02:29 | PHYS DOC ---
Past History Past Medical History: Arthritis, Constipation, Diverticulitis, High Cholesterol, Hypertension, Hypothyroid Past Surgical History: Cholecystectomy, Other Additional Past Surgical Histo: cardiac cath 2018 Alcohol Use: None Drug Use: None General Adult HPI: HPI: "..I started having this back pain.. here on the Rt.,.... about 6...but it got worse and worse.. came on in waves.. like someone was stabbing me in the back..it was much worse than the gall badder attack.. where my gall badder got necrotic... " Patient is a 80 year old female who presents with above hx and complaints of Rt. flank pain. Patient rated pain 10 out of 10 at its peak. Did have intermittent episodes which seem to start in her mid back and radiates to her right groin. Patient denies any back injury. Patient does have chronic back pain. Patient denies any history of fever or chills. Patient denies any dysuria. Patient denies having problems with defecation or urination. Patient denies any intake of bad food. Last ate chili for dinner 1800 hrs. No one else got sick. Patient denies any recent travel. Patient denies any specific ill contacts. Patient denies any history immunosuppression. Patient has chronic conditions of hypertension and diabetes,. No previous history of kidney stones. There is a history of kidney stones with daughter. Pt. follows with Dr. Oshea. Review of Systems: Review of Systems: Constitutional: Denies fever or chills Eyes: Denies change in visual acuity HENT: Denies nasal congestion or sore throat Respiratory: Denies cough or shortness of breath Cardiovascular: Denies chest pain or edema GI: Complains of right flank abdominal pain, nausea,. Denies vomiting, bloody stools or diarrhea : Denies dysuria Musculoskeletal: Complains of right flank back pain. Pain is different than her normal chronic back and joint pain Integument: Denies rash Neurologic: Denies headache, focal weakness or sensory changes Endocrine: Denies polyuria or polydipsia Lymphatic: Denies swollen glands Psychiatric: Denies depression or anxiety Family History: Family History: Daughter has kidney stones Current Medications: Current Meds: See nursing for home meds Allergies: Allergies: Allergies Coded Allergies Type Severity Reaction Last Updated Verified No Known Drug Allergies 10/21/18 No Physical Exam: PE: Constitutional: inacute distress, non-toxic appearance. [] HENT: Normocephalic, atraumatic, bilateral external ears normal, oropharynx moist, no oral exudates, nose normal. [] Eyes: PERRLA, EOMI, conjunctiva normal, no discharge. Glasses Neck: Normal range of motion, no tenderness, supple, no stridor. [] Cardiovascular:Bradycardia Heart rate regular rhythm, no murmur , PMI to Lt. Lungs & Thorax: Bilateral breath sounds equal apex on auscultation [] Abdomen: Bowel sounds decreased, soft, right flank tenderness, no masses, no p ulsatile masses. Old surgery scars. No rebound localization. Skin: Warm, mildly diaphoretic, no erythema, no rash. [] Back: Right flank tenderness, right CVA tenderness on percussion. Extremities: No tenderness, no cyanosis, no clubbing, ROM intact, no edema. Arthritic changes. No cording appreciated Neurologic: Alert and oriented X 3, normal motor function, normal sensory function, no focal deficits noted. DTRs +2 patella and brachial. Straight leg lift does not exacerbate pain. Psychologic: Affect anxious, judgement normal, mood normal. [] EKG: EKG: My interpretation EKG shows a sinus bradycardia at 60 bpm. Some nonspecific T wave changes but no findings of acute STEMI of contralateral changes. [] Radiology/Procedures: Radiology/Procedures: [][place] [address] IMAGING REPORT Signed PATIENT: SHAQUILLE SINCLAIR ACCOUNT: [id number] : 1940 LOCATION: ER AGE: 80 SEX: F EXAM STATUS: REG ER ORD. PHYSICIAN: ANTONIO LEVINE MD REASON: Rt.flank pain, radiates to groin on Rt. PROCEDURE: CT ABDOMEN PELVIS WO CONTRAST INDICATION: Reason: Rt.flank pain, radiates to groin on Rt. / Spl. Instructions: / History: . COMPARISON: September 2018 TECHNIQUE: Axial CT images obtained through the pelvis without contrast. One or more of the following individualized dose reduction techniques were utilized for this examination: 1. Automated exposure control; 2. Adjustment of the mA and/or kV according to patient size; 3. Use of iterative reconstruction technique. FINDINGS: Severe calcific atherosclerosis. Fat-containing inguinal hernias. Enlarged lymph nodes in the groin. Soft tissue nodule in the subcutaneous soft tissues right anterolateral pelvis again seen measuring up to about 23 mm. No intrahepatic bile duct dilation. Postcholecystectomy changes. Duodenal diverticulum. No peripancreatic fluid collection. Splenic calcified granuloma. Mild prominence of the bilateral extrarenal pelvis. Urinary bladder is partially distended. No radiopaque obstructive ureter stone. Colonic diverticulosis. No periappendiceal inflammatory changes. Degenerative changes the spine with multilevel central canal and neural foraminal stenosis. Calcified nodule right breast. Osseous demineralization. Degenerative changes of the bilateral hips. Schmorl's node formation. IMPRESSION: * No evidence of bowel obstruction or appendicitis. * Repeat demonstration of some enlarged lymph nodes in the bilateral groin as well as a soft tissue masslike structure with central calcification adjacent to the right iliac wing within the subcutaneous soft tissues. * Colonic diverticulosis. * No radiopaque obstructive ureter stone. Electronically signed by: Maurilio Leon MD (04/12/2020 5:13 AM) [id number] DICTATED AND SIGNED BY: MAURILIO LEON MD DATE: 04/12/20 0505 CC: ASH OSHEA MD; ANTONIO LEVINE MD ~MTH0 0 Heart Score: HEART Score for Chest Pain: HEART Score for Chest Pain Response (Comments) Value History Slighlty/Non-Suspicious 0 ECG Nonspecific Repolarizatio 1 Age > 65 2 Risk Factors 1 or 2 Risk Factors 1 Troponin < Normal Limit 0 Total 4 Risk Factors: Risk Factors: DM, Current or recent (<one month) smoker, HTN, HLP, family history of CAD, obesity. Risk Scores: Score 0 - 3: 2.5% MACE over next 6 weeks - Discharge Home Score 4 - 6: 20.3% MACE over next 6 weeks - Admit for Clinical Observation Score 7 - 10: 72.7% MACE over next 6 weeks - Early Invasive Strategies Course & Med Decision Making: Course & Med Decision Making Pertinent Labs and Imaging studies reviewed. (See chart for details) Stay on clear fluid diet x 24- 48 hrs. If still pain after next stool. Pt. will need re-exam and possible CT with contrast. Pt. at time discharge - pain free. Impression: 1. Abdomen Pain/ Rt. Flank- Renal Colic? 2. Renal Colic 3. DM - glucose 185 4. Hx HTN 5. Constipation [] Dragon Disclaimer: Dragon Disclaimer: This electronic medical record was generated, in whole or in part, using a voice recognition dictation system. Departure Departure: Referrals: ASH OSHEA MD (PCP) Gloria Disclaimer This chart was dictated in whole or in part using Voice Recognition software in a busy, high-work load, and often noisy Emergency Department environment. It may contain unintended and wholly unrecognized errors or omissions. Dragon Disclaimer This chart was dictated in whole or in part using Voice Recognition software in a busy, high-work load, and often noisy Emergency Department environment. It may contain unintended and wholly unrecognized errors or omissions. ANTONIO LEVINE MD Apr 12, 2020 02:29
[2020-04-12] MEDS ORDERED: IV RINGERS SOLUTION,LACTATED 1,000 ML IV SCH (02:45)
--- NOTE | 2020-04-12 02:53 | EKG ---
[address] [address] Test Date: 2020-04-12 Test Time: 02:46:24 Pat Name: SHAQUILLE SINCLAIR Department: Room: Gender: F [employer] Manifest Clerk: : 1940 Requested By: ANTONIO LEVINE Order Number: [id number] Reading MD: Robbie Harris Measurements Intervals [place] Rate: 60 P: 64 SC: 180 QRS: 26 QRSD: 90 T: 84 QT: 446 QTc: 446 Interpretive Statements SINUS RHYTHM T ABNORMALITY IN HIGH LATERAL LEADS ABNORMAL ECG Electronically Signed On 04-12-2020 13:32:40 INCOMING FREIGHT CLERK by Robbie Harris
[2020-04-12] MEDS ORDERED: ONDANSETRON PF 4 MG/2 ML VIAL. IVP ONE (03:00)
[2020-04-12] MEDS ORDERED: DOCU100C28 PO (03:00)
[2020-04-12] MEDS ORDERED: FAMOTIDINE 20 MG/2 ML VIAL IVP ONE (03:00)
[2020-04-12] MEDS ORDERED: AMLO-186 PO (03:00)
[2020-04-12] MEDS ORDERED: CHLO25TA9 PO (03:00)
[2020-04-12] MEDS ORDERED: [UNRECOGNIZED DRUG - OTHER] (03:03)
[2020-04-12] MEDS ORDERED: PRAV40TA2 PO (03:03)
[2020-04-12] MEDS ORDERED: LEVO50TA5 PO (03:03)
[2020-04-12] MEDS ORDERED: OMEG1CAP38 PO (03:03)
[2020-04-12] MEDS ORDERED: LOSA100T14 PO (03:03)
[2020-04-12] MEDS ORDERED: HYDR-2869 PO (03:03)
[2020-04-12 03:06] LABS: BASO # 0.1 x10^3/uL (0.0-0.2); BASO % 1 % (0-3); EOS # 0.1 x10^3/uL (0.0-0.7); EOS % 1 % (0-3); HEMATOCRIT 31.3 % (36.0-47.0); HEMOGLOBIN 10.5 g/dL (12.0-15.5); LYMPH # 2.3 x10^3/uL (1.0-4.8); LYMPH % 34 % (24-48); MEAN CORPUSCULAR HEMOGLOBIN 31 pg (25-35); MEAN CORPUSCULAR HGB CONC 34 g/dL (31-37); MEAN CORPUSCULAR VOLUME 93 fL (79-100); MONO # 0.6 x10^3/uL (0.0-1.1); MONO % 9 % (0-9); NEUT # 3.7 x10^3uL (1.8-7.7); NEUT % 55 % (31-73); PLATELET COUNT 195 x10^3/uL (140-400); RED BLOOD COUNT 3.35 x10^6/uL (3.50-5.40); RED CELL DISTRIBUTION WIDTH 12.6 % (11.5-14.5); WHITE BLOOD COUNT 6.8 x10^3/uL (4.0-11.0)
[2020-04-12 03:14] LABS: CALCIUM 8.6 mg/dL (8.5-10.1); CREATININE 1.5 mg/dL (0.6-1.0); GFR 33.4; POTASSIUM 3.9 mmol/L (3.5-5.1)
[2020-04-12 03:18] LABS: ALBUMIN 3.3 g/dL (3.4-5.0); DIRECT BILIRUBIN 0.1 mg/dL (0.0-0.2); TOTAL BILIRUBIN 0.3 mg/dL (0.2-1.0); TOTAL PROTEIN 7.1 g/dL (6.4-8.2)
[2020-04-12] MEDS ORDERED: MORPHINE SULFATE 10 MG/ML SYRINGE. SQ ONE (03:30)
[2020-04-12 03:43] LABS: CLARITY,URINE CLEAR; COLOR,URINE YELLOW
[2020-04-12 03:44] LABS: BACTERIA,URINE 0 /HPF (0-FEW); BILIRUBIN,URINE NEG (NEG); GLUCOSE,URINE NEG (NEG); NITRITE,URINE NEG (NEG); RBC,URINE 0 /HPF (0-2); SQUAMOUS EPITHELIAL CELL,UR OCC /LPF; UROBILINOGEN,URINE 0.2 mg/dL (0.2 mg/dL); WBC,URINE OCC /HPF (0-4)
--- NOTE | 2020-04-12 05:16 | RAD ---
INDICATION: Reason: Rt.flank pain, radiates to groin on Rt. / Spl. Instructions: / History: . COMPARISON: September 2018 TECHNIQUE: Axial CT images obtained through the pelvis without contrast. One or more of the following individualized dose reduction techniques were utilized for this examinat ion: 1. Automated exposure control; 2. Adjustment of the mA and/or kV according to patient size; 3 . Use of iterative reconstruction technique. FINDINGS: Severe calcific atherosclerosis. Fat-containing inguinal hernias. Enlarged lymph nodes in the groin. Soft tissue nodule in the subcutaneous soft tissues right anterolateral pelvis again seen measuring u p to about 23 mm. No intrahepatic bile duct dilation. Postcholecystectomy changes. Duodenal diverticulum. No peripancreatic fluid collection. Splenic calcified granuloma. Mild prominence of the bilateral extrarenal pelvis. Urinary bladder is partially distended. No radiopaque obstructive ureter stone. Colonic diverticulosis. No periappendiceal inflammatory changes. Degenerative changes the spine with multilevel central canal and neural foraminal stenosis. Calcified nodule right breast. Osseous demineralization. Degenerative changes of the bilateral hips. Schmorl's node formation. IMPRESSION: * No evidence of bowel obstruction or appendicitis. * Repeat demonstration of some enlarged lymph nodes in the bilateral groin as well as a soft tissue masslike structure with central calcification adjacent to the right iliac wing within the subcutaneou s soft tissues. * Colonic diverticulosis. * No radiopaque obstructive ureter stone. Electronically signed by: Nabor Candelario MD (04/12/2020 5:13 AM) [id number]
[2020-04-12] MEDS ORDERED: MAGNESIUM HYDROXIDE 2,400 MG/30 ML ORAL.SUSP. PO ONE (06:00)
--- NOTE | 2020-04-12 07:19 | RAD ---
PROCEDURE: XR ABDOMEN COMP ACUTE STUDY DATE: 04/12/2020 CLINICAL INDICATION / HISTORY: Reason: throacic and Lt flank pain / Spl. Instructions: / History: . TECHNIQUE: Upright PA chest, supine and upright films of the abdomen were obtained. COMPARISON: Chest x-ray 09/27/2018 FINDINGS: AP view the chest reveals the lungs to be clear. Cardiac and mediastinal silhouette are u nremarkable. No free air is identified below the diaphragms. Supine and decubitus views of the abdo men reveal no dilated loops of bowel or air-fluid levels. No organomegaly is present. No destructiv e osseous lesions. Moderate stool throughout the large bowel. Cholecystectomy clips. IMPRESSION: No radiographic evidence for bowel obstruction. Electronically signed by: Isidro Jimenez MD (04/12/2020 7:16 AM) [id number]
== END 2020-04-12 06:45 | disposition home or self-care (01) ==
LOC: ER 02:25
DX: N23 Unspecified renal colic (principal); K59.00 Constipation, unspecified; E11.9 Type 2 diabetes mellitus without complications; I10 Essential (primary) hypertension; M19.90 Unspecified osteoarthritis, unspecified site; E78.00 Pure hypercholesterolemia, unspecified; E03.9 Hypothyroidism, unspecified; Z90.49 Acquired absence of other specified parts of digestive tract
CPT/HCPCS: 36415; 74022; 74176; 80048; 80076; 81001; 82150; 82550; 83690; 84484; 85025; 85610; 85730; 87086; 93005; 96361; 96372; 96374; 96375; 99285; J2270; J2405; J3490; J7120

== ENCOUNTER → 2020-05-04 | Outpatient (CLI) | payer MEDICARE, BC ==
[2020-04-12 02:25] VITALS: BP 154/56
[~2020-05-04] MED LIST changes: +AMLO-186 PO; +CHLO25TA9 PO; +DOCU100C28 PO; +HYDR-2869 PO; +LEVO50TA5 PO; +LOSA100T14 PO; +OMEG1CAP38 PO; +PRAV40TA2 PO; +[UNRECOGNIZED DRUG - OTHER]
--- NOTE | 2020-05-05 08:38 | RAD ---
EXAMINATION: MG BILAT SCREEN+AUTUMN CLINICAL HISTORY: Routine screening TECHNIQUE: Digital craniocaudal and mediolateral oblique views of the bilateral breasts obtained with 3-D tomosynthesis. COMPARISON: 04/16/2019, 04/15/2018 BREAST COMPOSITION: There are scattered areas of fibroglandular density. FINDINGS: No evidence of suspicious mass, calcifications, or areas of architectural distortion. IMPRESSION: No mammographic evidence of malignancy. BI-RADS ASSESSMENT: Category 1: Negative RECOMMENDATION: Return for routine bilateral screening mammogram in one year. PQRS compliance statement - Patient information was entered into a reminder system with a target due date for the next mammogram. "Our facility is accredited by the [employer] Mammography Program." Electronically signed by: Marv Ortiz DO (05/05/2020 8:35 AM) [id number]
== END ==
LOC: MAMMO 09:31
PROVIDERS: ATTEND Family Medicine
DX: Z12.31 Encounter for screening mammogram for malignant neoplasm of breast (principal)
CPT/HCPCS: 77063; 77067

== ENCOUNTER 2020-09-16 13:50 | Emergency (ER) | payer MEDICARE, BC ==
[~2020-09-16] VITALS: Ht 170.2 cm; Wt 82.0 kg
[2020-09-16 14:05] VITALS: BP 150/47
--- NOTE | 2020-09-16 14:14 | PHYS DOC ---
Past History Past Medical History: Arthritis, Constipation, Diverticulitis, High Cholesterol, Hypertension, Hypothyroid Additional Past Medical Histor: back spasms; sleep apnea--wears c-pap @ home--RA Past Surgical History: Cholecystectomy, Tubal ligation, Other Additional Past Surgical Histo: cardiac cath 2018 Alcohol Use: None Drug Use: None Adult General Chief Complaint Chief Complaint: FOOT INJURY PAIN [facility] HPI Patient is an 80-year-old female presenting for right foot pain. Reports most pain is on medial side over right bunion area. Onset was this morning without any known inciting event, trauma, ingestion or other exposure. Pain is sharp, focal and nonradiating. Timing of symptoms has been constant since onset. Patient reports distant history of a stress fracture diagnosed by primary care physician approximately 1 year prior, states this self resolved with supportive care practices. Patient has taken 400 mg ibuprofen at 8 AM today with mild improvement in pain only. No history of osteoporosis. No fever, chest pain, s hortness of breath, abdominal pain, history of gout Review of Systems Review of Systems Fourteen body systems of review of systems have been reviewed. See HPI for pertinent positives and negative responses, other monte[place] all other systems are negative, non-pertinent or non-contributory Allergies Allergies Allergies Coded Allergies Type Severity Reaction Last Updated Verified No Known Drug Allergies 04/12/20 No Physical Exam Physical Exam Constitutional: Well developed, well nourished, no acute distress, non-toxic appearance. HENT: Normocephalic, atraumatic, bilateral external ears normal, oropharynx moist, no oral exudates, nose normal. Eyes: PERRLA, EOMI, conjunctiva normal, no discharge. Neck: Normal range of motion, no tenderness, supple, no stridor. Cardiovascular: Heart rate regular per monitor Lungs & Thorax: No respiratory distress or accessory muscle use, bilateral chest rise Abdomen: Abdomen soft, non-tender, bowel sounds present in all quadrants, no guarding or rebound, nonacute abdomen. Skin: Warm, dry, no erythema, no rash. Back: No tenderness, no CVA tenderness. Extremities: Redness and tenderness over right big toe joint concerning for podagra, no palpable abnormalities but is exquisitely tender with palpation, no streaking or induration, no cyanosis, no clubbing, ROM intact, no edema. Neurologic: Alert and oriented X 3, grossly normal motor & sensory function, no focal deficits noted. Psychologic: Affect normal, judgement normal, mood normal. Current Patient Data Vital Signs Vital Signs Date Time Temp Pulse Resp B/P (MAP) Pulse Ox O2 Delivery O2 Flow Rate FiO2 09/16/20 14:05 97.5 58 20 150/47 (81) 97 Room Air Vital Signs Date Time Temp Pulse Resp B/P (MAP) Pulse Ox O2 Delivery O2 Flow Rate FiO2 09/16/20 14:05 97.5 58 20 150/47 (81) 97 Room Air EKG EKG [] Radiology/Procedures Radiology/Procedures EXAM: Right foot 3 views. HISTORY: Fifth metatarsal pain. COMPARISON: None. FINDINGS: Three views of the right foot are obtained. No fractures are identified. There is a small soft tissue bunion. There are no clear associated soft tissue calcifications. Calcification along the plantar fascia is consistent with chronic plantar fasciitis. There are moderate plantar greater than posterior calcaneal spurs. Tarsometatarsal osteoarthritis is mild for patient age. Alignment is maintained. IMPRESSION: 1. Small soft tissue bunion. 2. Changes of chronic plantar fasciitis. Electronically signed by: Venu Tello MD (09/16/2020 2:39 PM) [id number] Heart Score C/O Chest Pain: No Risk Factors: Risk Factors: DM, Current or recent (<one month) smoker, HTN, HLP, family history of CAD, obesity. Risk Scores: Risk Factors: DM, Current or recent (<one month) smoker, HTN, HLP, family history of CAD, obesity. Course & Med Decision Making Course & Med Decision Making Discussed with the patient all findings and diagnostic testing. I discussed most likely diagnosis of right foot pain of unknown etiology. I disclose this might be an early presentation of podagra, I discussed utility of joint aspiration but at present, I am not confident there is any significant fluid worth aspirating and that risks would outweigh the benefits. Also discussed potential diagnosis of contusion. Joint decision made with patient to treat short-term with NSAIDs with close outpatient PCP follow-up within upcoming 72 hours. I disclosed if this was gout further treatment might be indicated. Otherwise, continued supportive care in outpatient setting advised. I stressed need for close outpatient follow-up to review today's ER visit. Strict return precautions were also discussed at length with good understanding by patient. Patient voiced understanding and agreement with the plan. Patient knows to come back for repeat evaluation if concerning signs or symptoms present prior to outpatient follow-up. Hemodynamically stable, ambulatory and well-appearing at time of disposition. Dragon Disclaimer Dragon Disclaimer This electronic medical record was generated, in whole or in part, using a voice recognition dictation system. Departure Departure: Impression: Primary Impression: Right foot pain Disposition: HOME / SELF CARE / HOMELESS Condition: STABLE Referrals: ASH OSHEA MD (PCP) Patient Instructions: Gout Additional Instructions: As discussed prior to ER departure, your vital signs, physical exam and radiog raphs were nonconcerning for any bony abnormalities. I disclosed my concern for early onset of podagra, or gout. I discussed limited utility in further diagnostic work-up in ER setting, also disclosed low likelihood of successful joint aspiration given size of joint at present. As such, we made the decision to continue supportive care practices and as discussed, you should avoid foods such as wine, cheese, and other foods high in nitrates in addition to taking 800 mg ibuprofen three times daily and Tylenol 500 to 650 mg three times daily with meals for next 3 days. You need to contact your primary care physician immediately after ER departure to review ER visit today and need for close outpatient follow-up early next week. I discussed there might be need for further diagnostic studies and treatment if your symptoms do not resolve. If any concerning signs or symptoms present prior to outpatient follow-up please don't hesitate to come back for repeat evaluation. It was a pleasure to take care of you and I wish you the best going forward LUIS CARLOS WATERS DO Sep 16, 2020 14:14
--- NOTE | 2020-09-16 14:41 | RAD ---
EXAM: Right foot 3 views. HISTORY: Fifth metatarsal pain. COMPARISON: None. FINDINGS: Three views of the right foot are obtained. No fractures are identified. There is a small soft tissue bunion. There are no clear associated soft tissue calcifications. Calcification along the plantar fascia is consistent with chronic plantar fasc iitis. There are moderate plantar greater than posterior calcaneal spurs. Tarsometatarsal osteoarthri tis is mild for patient age. Alignment is maintained. IMPRESSION: 1. Small soft tissue bunion. 2. Changes of chronic plantar fasciitis. Electronically signed by: Venu Tello MD (09/16/2020 2:39 PM) [id number]
== END 2020-09-16 15:12 | disposition home or self-care (01) ==
LOC: ER 14:10
DX: M79.671 Pain in right foot (principal); E78.5 Hyperlipidemia, unspecified; I10 Essential (primary) hypertension; Z90.49 Acquired absence of other specified parts of digestive tract; Z98.51 Tubal ligation status
CPT/HCPCS: 73630; 99283

== ENCOUNTER → 2020-09-28 | Outpatient (CLI) | payer MEDICARE, BC ==
[2020-09-16 14:05] VITALS: BP 150/47
[2020-09-28 13:56] LABS: ALBUMIN 3.4 g/dL (3.4-5.0); CALCIUM 8.1 mg/dL (8.5-10.1); CREATININE 1.7 mg/dL (0.6-1.0); GFR 28.9; PHOSPHORUS 4.7 mg/dL (2.6-4.7); POTASSIUM 3.9 mmol/L (3.5-5.1)
== END ==
LOC: LAB 13:13
PROVIDERS: ATTEND Internal Medicine Nephrology
DX: I12.9 Hypertensive chronic kidney disease with stage 1 through stage 4 chronic kidney disease, or unspecified chronic kidney disease (principal); R80.1 Persistent proteinuria, unspecified; D64.9 Anemia, unspecified; E55.9 Vitamin D deficiency, unspecified; N18.32 Chronic kidney disease, stage 3b; Z68.28 Body mass index [BMI] 28.0-28.9, adult
CPT/HCPCS: 36415; 80069

== ENCOUNTER 2020-11-07 10:15 | Emergency (ER) | payer MEDICARE, BC ==
[~2020-11-07] VITALS: Ht 170.2 cm; Wt 80.9 kg
[2020-11-07] MEDS ORDERED: TETRACAINE 0.5% OPHTH SOLUTION 4ML BOTTLE. OU ONE (11:00)
[2020-11-07] MEDS ORDERED: FLUORESCEIN 1MG EYE STRIP. OU ONE (11:00)
[2020-11-07 11:09] VITALS: BP 156/50
[2020-11-07] MEDS ORDERED: ERYT1OIN6 OP (11:11)
[2020-11-07] MEDS ORDERED: OLOP2.5D12 EACHEYE (11:11)
--- NOTE | 2020-11-07 11:11 | PHYS DOC ---
Past History Past Medical History: Arthritis, Constipation, Diverticulitis, High Cholesterol, Hypertension, Hypothyroid Additional Past Medical Histor: back spasms; sleep apnea--wears c-pap @ home--RA Past Surgical History: Cholecystectomy, Tubal ligation, Other Additional Past Surgical Histo: cardiac cath 2018 Alcohol Use: None Drug Use: None General Adult EDM: Chief Complaint: EYE PROBLEMS HPI: HPI: Patient is a 80-year-old female coming in for itching, pain, and watering of her right eye. Denies any purulent discharge. Patient states she was sitting on the couch yesterday when the symptoms started as itching. Patient tried using some of her moisturizing eyedrops that she has for dry eye and her left eye. Patient denies any injury. Wears glasses but does not wear contacts. No other complaints. Has a history of sinus congestion. Review of Systems: Review of Systems: All other systems within normal limits except for as noted in the HPI Current Medications: Current Meds: Current Medications Medications (Trade) Dose Ordered Sig/Luis Eduardo Start Time Stop Time Status Last Admin Dose Admin Fluorescein Sodium (Ful-Deana 1mg) 1 strip 1X ONCE 11/07/20 11:00 11/07/20 11:01 11/07/20 10:49 1 STRIP Tetracaine HCl (Tetracaine) 1 drop 1X ONCE 11/07/20 11:00 11/07/20 11:01 11/07/20 10:49 1 DROP Allergies: Allergies: Allergies Coded Allergies Type Severity Reaction Last Updated Verified No Known Drug Allergies 04/12/20 No Physical Exam: PE: Constitutional: Well developed, well nourished, no acute distress, non-toxic appearance. [] HENT: Normocephalic, atraumatic, bilateral external ears normal, nose normal. [] Eyes: PERRLA, right eye conjunctival injection, extraocular movements intact, no consensual photophobia. Reviewed with fluorescein, small area of uptake upper medial conjunctiva not involving the cornea. [] Neck: No rigidity, supple, no stridor. [] Cardiovascular: Regular rate and rhythm, brisk cap refill [] Lungs & Thorax: Non labored symmetric respirations, no tachypnea or respiratory distress [] Abdomen: Soft, nondistended. Skin: Warm, dry, no erythema, no rash. [] Back: Unremarkable Extremities: No deformities, range of motion grossly intact, no lower extremity edema [] Neurologic: Alert and oriented X 3, no focal deficits noted. [] Psychologic: Affect normal, judgement normal, mood normal. [] Current Patient Data: Vital Signs: Vital Signs Date Time Temp Pulse Resp B/P (MAP) Pulse Ox O2 Delivery O2 Flow Rate FiO2 11/07/20 10:20 97.8 67 20 153/60 97 Room Air EKG: EKG: [] Radiology/Procedures: Radiology/Procedures: [] Heart Score: C/O Chest Pain: No Risk Factors: Risk Factors: DM, Current or recent (<one month) smoker, HTN, HLP, family history of CAD, obesity. Risk Scores: Score 0 - 3: 2.5% MACE over next 6 weeks - Discharge Home Score 4 - 6: 20.3% MACE over next 6 weeks - Admit for Clinical Observation Score 7 - 10: 72.7% MACE over next 6 weeks - Early Invasive Strategies Course & Med Decision Making: Course & Med Decision Making Pertinent Labs and Imaging studies reviewed. (See chart for details) [] Dragon Disclaimer: Dragon Disclaimer: This electronic medical record was generated, in whole or in part, using a voice recognition dictation system. Departure Departure: Impression: Primary Impression: Conjunctivitis Disposition: HOME / SELF CARE / HOMELESS Condition: STABLE Referrals: ASH OSHEA MD (PCP) Patient Instructions: Bacterial Conjunctivitis Scripts Olopatadine Hcl (PATADAY) 2.5 Ml Drops 1 DROP EACHEYE DAILY PRN for ITCHING, #2.5 ML 3 Refills Prov: LUIZ ABBOTT MD 11/07/20 Erythromycin Base (Erythromycin) 1 Gm Oint...g. 1 GM OP QID for corneal abrasion for 7 Days, #1 MISC Ophthalmic: Instill ~1 cm ribbon into left eye QID for 5 days. Prov: LUIZ ABBOTT MD 11/07/20 LUIZ ABBOTT MD Nov 07, 2020 11:11
[2020-11-07] MEDS ORDERED: ERYTHROMYCIN 0.5% OPHTH OINTMENT 1GM TUBE. OD ONE (11:15)
== END 2020-11-07 11:12 | disposition home or self-care (01) ==
LOC: ER 10:15
DX: H10.9 Unspecified conjunctivitis (principal); M19.90 Unspecified osteoarthritis, unspecified site; E78.00 Pure hypercholesterolemia, unspecified; I10 Essential (primary) hypertension; E03.9 Hypothyroidism, unspecified
CPT/HCPCS: 99284

== ENCOUNTER → 2021-02-10 | Outpatient (CLI) | payer MEDICARE, BC ==
[~2021-02-10] MED LIST changes: -CYCL-331 PO; +CYCL10TA19 PO; +ERYT1OIN6 OP; +OLOP2.5D12 EACHEYE
[2021-02-10 10:24] LABS: ALBUMIN 3.6 g/dL (3.4-5.0); CALCIUM 9.3 mg/dL (8.5-10.1); CREATININE 1.5 mg/dL (0.6-1.0); GFR 33.4; PHOSPHORUS 4.4 mg/dL (2.6-4.7); POTASSIUM 4.3 mmol/L (3.5-5.1)
== END ==
LOC: LAB 09:24
PROVIDERS: ATTEND Internal Medicine Nephrology
DX: I12.9 Hypertensive chronic kidney disease with stage 1 through stage 4 chronic kidney disease, or unspecified chronic kidney disease (principal); N18.32 Chronic kidney disease, stage 3b; N17.9 Acute kidney failure, unspecified; N20.0 Calculus of kidney; R80.1 Persistent proteinuria, unspecified; D64.9 Anemia, unspecified; E55.9 Vitamin D deficiency, unspecified; Z68.28 Body mass index [BMI] 28.0-28.9, adult
CPT/HCPCS: 36415; 80069

== ENCOUNTER → 2021-05-08 | Outpatient (CLI) | payer MEDICARE, BC ==
--- NOTE | 2021-05-08 11:37 | RAD ---
BILATERAL SCREENING MAMMOGRAM History: Routine screening. Comparison: Most recently on 05/04/2020. Technique: Routine 2D and 3D tomosynthesis digital mammogram views were obtained bilaterally. Interpr etation was assisted with the use of computer-aided detection. Findings: Breast Tissue Density B : There are scattered areas of fibroglandular density. Several nodular asymmetries on both the right and left are without significant change. No newly seen mass, architectural distortion or suspicious microcalcifications. IMPRESSION: No mammographic evidence of malignancy. Recommend routine screening mammography in one year. BI-RADS category 2: Benign findings. Patient information is entered into the reminder system with a target due date for the next screening mammogram. "Our facility is accredited by the [employer] Mammography Program." Electronically signed by: FATMATA VALDEZ MD (05/08/2021 11:35 AM) [id number]
== END ==
LOC: MAMMO 10:02
PROVIDERS: ATTEND Family Medicine
DX: Z12.31 Encounter for screening mammogram for malignant neoplasm of breast (principal)
CPT/HCPCS: 77063; 77067

== ENCOUNTER 2021-08-06 13:11 | Emergency (ER) | payer MEDICARE, BC ==
[~2021-08-06] VITALS: Ht 170.2 cm; Wt 82.5 kg
[2021-08-06 13:22] VITALS: BP 159/56
[2021-08-06] MEDS ORDERED: ORPHENADRINE CITRATE 60 MG/2 ML VIAL. IM ONE (14:30)
[2021-08-06] MEDS ORDERED: KETOROLAC 60 MG/2 ML VIAL. IM ONE (14:30)
--- NOTE | 2021-08-06 14:50 | PHYS DOC ---
Past History Past Medical History: Arthritis, Constipation, Diverticulitis, High Cholesterol, Hypertension, Hypothyroid Additional Past Medical Histor: back spasms; sleep apnea--wears c-pap @ home--RA Past Surgical History: Cholecystectomy, Tubal ligation, Other Additional Past Surgical Histo: cardiac cath 2018 Alcohol Use: None Drug Use: None General Adult EDM: Chief Complaint: BACK PAIN - NO INJURY HPI: HPI: Patient is a 81-year-old female who presents with muscle spasms between her shoulder blades. Patient states that symptoms started yesterday. Denies injury. Pain radiates to left side, mid back. Denies chest pain or shortness of breath. Patient reports taking Flexeril prior to arrival. Denies relief of pain. No medical history. Review of Systems: Review of Systems: ROS At least 10 ROS systems have been reviewed and are negative except as documented in the HPI. General: Negative except as outlined in HPI above. Skin: Negative except as outlined in HPI above. HEENT: Negative except as outlined in HPI above. Neck: Negative except as outlined in HPI above. Respiratory: Negative except as outlined in HPI above.. Cardiovascular: Negative except as outlined in HPI above. Abdomen: Negative except as outlined in HPI above. : Negative except as outlined in HPI above. Back/MSK: Negative except as outlined in HPI above. Neuro: Negative except as outlined in HPI above. Psych: Negative except as outlined in HPI above. Current Medications: Current Meds: Current Medications Medications (Trade) Dose Ordered Sig/Luis Eduardo Start Time Stop Time Status Last Admin Dose Admin Ketorolac Tromethamine (Toradol Im) 60 mg 1X ONCE 08/06/21 14:30 08/06/21 14:41 DC 08/06/21 14:30 60 MG Orphenadrine Citrate (Norflex) 60 mg 1X ONCE 08/06/21 14:30 08/06/21 14:41 DC 08/06/21 14:30 60 MG Allergies: Allergies: Allergies Coded Allergies Type Severity Reaction Last Updated Verified No Known Drug Allergies 04/12/20 No Physical Exam: PE: Constitutional: Well developed, well nourished, no acute distress, non-toxic appearance. [] HENT: Normocephalic, atraumatic, bilateral external ears normal, oropharynx moist, no oral exudates, nose normal. [] Eyes: PERRLA, EOMI, conjunctiva normal, no discharge. [] Neck: Normal range of motion, no tenderness, supple, no stridor. [] Cardiovascular:Heart rate regular rhythm, no murmur [] Lungs & Thorax: Bilateral breath sounds clear to auscultation [] Abdomen: Bowel sounds normal, soft, no tenderness, no masses, no pulsatile masses. [] Skin: Warm, dry, no erythema, no rash. [] Back: Spasms between shoulder blades, tenderness, no CVA tenderness. [] Extremities: No tenderness, no cyanosis, no clubbing, ROM intact, no edema. [] Neurologic: Alert and oriented X 3, normal motor function, normal sensory function, no focal deficits noted. [] Psychologic: Affect normal, judgement normal, mood normal. [] Current Patient Data: Vital Signs: Vital Signs Date Time Temp Pulse Resp B/P (MAP) Pulse Ox O2 Delivery O2 Flow Rate FiO2 08/06/21 13:22 98.2 62 16 159/56 (90) 99 Room Air EKG: EKG: [] Radiology/Procedures: Radiology/Procedures: [] Heart Score: C/O Chest Pain: No Risk Factors: Risk Factors: DM, Current or recent (<one month) smoker, HTN, HLP, family history of CAD, obesity. Risk Scores: Score 0 - 3: 2.5% MACE over next 6 weeks - Discharge Home Score 4 - 6: 20.3% MACE over next 6 weeks - Admit for Clinical Observation Score 7 - 10: 72.7% MACE over next 6 weeks - Early Invasive Strategies Course & Med Decision Making: Course & Med Decision Making Pertinent Labs and Imaging studies reviewed. (See chart for details) [] 81-year-old female presents with muscle spasms in her shoulder blades. Patient states that symptoms started yesterday. No injury. Pain is radiating to left side of her mid back. No chest pain or shortness of breath. Work-up in ER consist CBC, CMP, troponin. Patient given IM Norflex, IM Toradol. Labs unremarkable. Troponin is negative. Discussed all results with patient. Patient is still reporting muscle spasms with movement. Patient given Medrol IM along with hydrocodone and a Lidoderm patch. Patient reports that symptoms have improved since medication was administered. Discussed at home treatment and follow-up. Patient to continue taking ibuprofen and Tylenol at home. Patient should follow-up with PCP if symptoms or not improving. Discussed return precautions. Patient verbalizes understanding of discharge instructions. Patient's appreciative and okay with discharge plan. Gloria Disclaimer: Gloria Disclaimer: This electronic medical record was generated, in whole or in part, using a voice recognition dictation system. Departure Departure: Impression: Primary Impression: Back muscle spasm Disposition: HOME / SELF CARE / HOMELESS Condition: STABLE Referrals: ASH OSHEA MD (PCP) Patient Instructions: Back Pain, Adult Additional Instructions: You are seen the emergency room for muscle spasms. You were given muscle relaxer, hydrocodone, Lidoderm patch, steroid injection. Continue taking your Flexeril at home as needed. Ibuprofen as well. Follow-up with your PCP tomorrow for further management if symptoms have not subsided. Return to emergency room with worsening symptoms or concerns EMERGENCY DEPARTMENT GENERAL DISCHARGE INSTRUCTIONS Thank you for coming to [facility] (ED) today and trusting us with you care. We trust that you had a positivie experience in our Emergency Department. If you wish to speak to the department management, you may call the director at [phone]. YOUR FOLLOW UP INSTRUCTIONS ARE FOLLOWS: 1. Do you have a private Doctor? If you do not have a private doctor, please ask for a resource list of physicians or clinics that may be able to assist you with follow up care. 2. The Emergency Physician has interpreted your x-rays. The X-Ray specialist will also review them. If there is a change in the findings, you will be notified in 48 hours when at all possible. 3. A lab test or culture has been done, your results will be reviewed and you will be notified if you need a change in treatment. ADDITIONAL INSTRUCTIONS AND INFORMATION: 1. Your care today has been supervised by a physician who is specially trained in emergency care. Many problems require more than one evaluation for a complete diagnosis and treatment. We recommend that you schedule your follow up appointment as recommended to ensure complete treatment of you illness or injury. If you are unable to obtain follow up care and continue to have a problem, or if your condition worsens, we recommend that you return to the ED. 2. We are not able to safely determine your condition over the phone nor are we able to give sound medical advice over the phone. For these safety reasons, if you call for medical advice we will ask you to come to the ED for further evaluation. 3. If you have any questions regarding these discharge instructions please call the ED at [phone]. SAFETY INFORMATION: In the interest of safety, wellness, and injury prevention; we encourage you to wear your sealbelt, if you smoke; quite smoking, and we encourage family to use a protective helmet for bicycling and other sporting events that present an increased risk for head injury. IF YOUR SYMPTOMS WORSEN OR NEW SYMPTOMS DEVELOP, OR YOU HAVE CONCERNS ABOUT YOUR CONDITION; OR IF YOUR CONDITION WORSENS WHILE YOU ARE WAITING FOR YOUR FOLLOW UP APPOINTM ENT; EITHER CONTACT YOUR PRIMARY CARE DOCTOR, THE PHYSICIAN WHOSE NAME AND NUMBER YOU WERE GIVEN, OR RETURN TO THE ED IMMEDIATELY. MONIQUE BOWIE APRN August 06, 2021 14:50
[2021-08-06 15:13] LABS: BASO % 1 % (0-3); EOS # 0.1 x10^3/uL (0.0-0.7); EOS % 2 % (0-3); HEMATOCRIT 33.3 % (36.0-47.0); HEMOGLOBIN 11.3 g/dL (12.0-15.5); LYMPH # 1.8 x10^3/uL (1.0-4.8); LYMPH % 30 % (24-48); MEAN CORPUSCULAR HEMOGLOBIN 32 pg (25-35); MEAN CORPUSCULAR HGB CONC 34 g/dL (31-37); MEAN CORPUSCULAR VOLUME 94 fL (79-100); MONO # 0.5 x10^3/uL (0.0-1.1); MONO % 9 % (0-9); NEUT # 3.5 x10^3uL (1.8-7.7); NEUT % 59 % (31-73); PLATELET COUNT 210 x10^3/uL (140-400); RED BLOOD COUNT 3.55 x10^6/uL (3.50-5.40); RED CELL DISTRIBUTION WIDTH 12.7 % (11.5-14.5); WHITE BLOOD COUNT 5.9 x10^3/uL (4.0-11.0)
[2021-08-06 15:18] LABS: CALCIUM 9.2 mg/dL (8.5-10.1); CREATININE 1.6 mg/dL (0.6-1.0); GFR 30.9
[2021-08-06] MEDS ORDERED: methylPREDNISolone ACETATE 40 MG/ML VIAL. IM ONE (16:00)
[2021-08-06] MEDS ORDERED: HYDROcodone/APAP 5/325MG 1 TAB TABLET PO ONE (16:00)
[2021-08-06] MEDS ORDERED: LIDOCAINE (700MG/PATCH) PATCH. TD ONE (16:00)
[2021-08-06] MEDS ORDERED: PATCH REMOVAL. MC SCH (21:00)
--- NOTE | 2021-08-06 21:24 | EKG ---
[facility] ED [facility] [address] [place] [id number] Test Date: 2021-08-06 Test Time: 14:35:46 Pat Name: SHAQUILLE SINCLAIR Department: Room: Gender: F Masseur/Masseuse: : 1940 Requested By: MONIQUE BOWIE Order Number: [id number] Reading MD: Measurements Intervals [place] Rate: 56 P: 90 MO: 182 QRS: 80 QRSD: 84 T: 91 QT: 430 QTc: 417 Interpretive Statements SINUS RHYTHM T ABNORMALITY IN ANTEROSEPTAL LEADS ABNORMAL ECG RI6.02 Compared to ECG 08/06/2021 14:34:24 No significant changes
== END 2021-08-06 16:45 | disposition home or self-care (01) ==
LOC: ER 13:16
DX: M62.830 Muscle spasm of back (principal); M54.6 Pain in thoracic spine; M19.90 Unspecified osteoarthritis, unspecified site; E78.00 Pure hypercholesterolemia, unspecified; I10 Essential (primary) hypertension; E03.9 Hypothyroidism, unspecified; Z90.49 Acquired absence of other specified parts of digestive tract; Z98.51 Tubal ligation status
CPT/HCPCS: 36415; 80048; 84484; 85025; 93005; 96372; 99284; J1030; J1885; J2360

== ENCOUNTER → 2021-08-09 | Outpatient (CLI) | payer MEDICARE, BC ==
[2021-08-06 13:22] VITALS: BP 159/56
[2021-08-09 11:54] LABS: HEMATOCRIT 34.1 % (36.0-47.0); HEMOGLOBIN 11.4 g/dL (12.0-15.5)
[2021-08-09 13:46] LABS: ALBUMIN 3.3 g/dL (3.4-5.0); CALCIUM 8.9 mg/dL (8.5-10.1); CREATININE 1.5 mg/dL (0.6-1.0); GFR 33.3; PHOSPHORUS 3.5 mg/dL (2.6-4.7); POTASSIUM 3.9 mmol/L (3.5-5.1)
== END ==
LOC: LAB 10:56
PROVIDERS: ATTEND Internal Medicine Nephrology
DX: I12.9 Hypertensive chronic kidney disease with stage 1 through stage 4 chronic kidney disease, or unspecified chronic kidney disease (principal); N18.32 Chronic kidney disease, stage 3b; N17.9 Acute kidney failure, unspecified; N20.0 Calculus of kidney; R80.1 Persistent proteinuria, unspecified; D64.9 Anemia, unspecified; E55.9 Vitamin D deficiency, unspecified; Z68.28 Body mass index [BMI] 28.0-28.9, adult
CPT/HCPCS: 36415; 80069; 85014; 85018